=== PATIENT | female | born 1990 | race Caucasian/White ===

== ENCOUNTER 2024-05-16 10:13 | Emergency (ER) | payer OTHER, SELFPAY ==
[2024-05-16 10:19] VITALS: BP 140/94; PULSE 88; RESP 24; TEMP 36.4; O2SAT 99; BMI 58.2
[2024-05-16 11:28] LABS: Adenovirus Not Detected (Not Detect); B. parapertussis Not Detected (Not Detecte); Bordetella pertussis Not Detected (Not Detect); Chlamydophila pneumoniae Not Detected (Not Detect); Coronavirus 229E Not Detected (Not Detect); Coronavirus HKU1 Not Detected (Not Detect); Coronavirus NL 63 Not Detected (Not Detect); Coronavirus OC43 Not Detected (Not Detect); Human Metapneumovirus Not Detected (Not Detect); Human Rhinovirus/Enterovirus Not Detected (Not Detect); Influenza A Not Detected (Not Detect); Influenza B Not Detected (Not Detect); Mycoplasma pneumoniae Not Detected (Not Detect); Parainfluenza Virus 1 Not Detected (Not Detect); Parainfluenza Virus 2 Not Detected (Not Detect); Parainfluenza Virus 3 Not Detected (Not Detect); Parainfluenza Virus 4 Not Detected (Not Detect); Respiratory Syncytial Virus Not Detected (Not Detect); SARS- CoV-2 Not Detected (Not Detecte)
--- NOTE | 2024-05-16 13:35 | ED.URI ---
HPI - URI/Sore Throat <Maritza Arizmendi PA-C - Last Filed: 05/16/24 19:31> General Chief Complaint: Upper Respiratory Symptoms Stated Complaint: Mold Exposure Time Seen by Provider: 05/16/24 13:34 Source: patient Mode of arrival: Family Vehicle History of Present Illness HPI Narrative: Ms. Aparicio is a pleasant 34-year-old female with a past medical history of bipolar disorder who presents to the emergency department for concerns of mold exposure. Patient reports she lives in an apartment complex and is being exposed to mold. States that she is attempting to move. In the last few days, she has had cough and sinus congestion that she is worried is related to the mold. Denies fevers, chills, nausea, vomiting, difficulty breathing, rash. She does take a daily allergy pill as recommended by her PCP. Related Data Allergies Allergy/AdvReac Type Severity Reaction Status Date / Time No Known Drug Allergies Allergy Verified 05/16/24 10:28 Review of Systems <Maritza Arizmendi PA-C - Last Filed: 05/16/24 19:31> Review of Systems ROS Unobtainable: All systems reviewed & are unremarkable except as noted in HPI and below Patient History <Maritza Arizmendi PA-C - Last Filed: 05/16/24 19:31> Social History Smoking Status: Former smoker Smoking Status: Former smoker tobacco type: cigarettes alcohol intake frequency: 0-2 drinks per day Substance Use Type: marijuana Exam <Maritza Arizmendi PA-C - Last Filed: 05/16/24 19:31> Narrative Exam Narrative: GENERAL: 34 year old patient appears stated age. Obese patient, in no acute distress. HEAD: Atraumatic. Normocephalic. EYES: Extraocular motions intact. No scleral icterus. No injection or drainage. ENT: Nose without bleeding, purulent drainage. Airway patent. NECK: Trachea midline. CARDIOVASCULAR: Regular rate and rhythm. RESPIRATORY: Clear to auscultation. Breath sounds equal bilaterally. No wheezes, rales, or rhonchi. EXTREMITIES: No edema or joint tenderness. BACK: Nontender without deformity or crepitance NEURO: AOx3. SKIN: No rash or erythema of visible areas Initial Vital Signs Initial Vital Signs: Vital Signs Temperature 97.6 F 05/16/24 10:19 Pulse Rate 88 05/16/24 10:19 Respiratory Rate 24 05/16/24 10:19 Blood Pressure 140/94 H 05/16/24 10:19 Pulse Oximetry 99 05/16/24 10:19 Oxygen Delivery Method Room Air 05/16/24 10:19 <Bhavani Mcmillan MD - Last Filed: 05/21/24 07:11> Initial Vital Signs Initial Vital Signs: Vital Signs Temperature 97.6 F 05/16/24 10:19 Pulse Rate 88 05/16/24 10:19 Respiratory Rate 24 05/16/24 10:19 Blood Pressure 140/94 H 05/16/24 10:19 Pulse Oximetry 99 05/16/24 10:19 Oxygen Delivery Method Room Air 05/16/24 10:19 Course <Maritza Arizmendi PA-C - Last Filed: 05/16/24 19:31> Orders Ordered: Discontinued Medications Hydroxyzine HCl (Hydroxyzine Hcl 25 Mg Tablet) 25 mg PO NOW ONE Stop: 05/16/24 17:32 Last Admin: 05/16/24 17:47 Dose: 25 mg Documented By: SHERIF Vital Signs Vital signs: Vital Signs - 8 hr 05/16/24 16:34 05/16/24 18:35 Pulse Rate 84 78 Respiratory Rate 18 18 Blood Pressure 134/74 155/92 H Pulse Oximetry 97 98 Oxygen Delivery Method Room Air Room Air <Bhavani Mcmillan MD - Last Filed: 05/21/24 07:11> Orders Ordered: Discontinued Medications Hydroxyzine HCl (Hydroxyzine Hcl 25 Mg Tablet) 25 mg PO NOW ONE Stop: 05/16/24 17:32 Last Admin: 05/16/24 17:47 Dose: 25 mg Documented By: SHERIF Vital Signs Vital signs: Vital Signs - 8 hr 05/16/24 16:34 05/16/24 18:35 Pulse Rate 84 78 Respiratory Rate 18 18 Blood Pressure 134/74 155/92 H Pulse Oximetry 97 98 Oxygen Delivery Method Room Air Room Air MDM - URI/Sore Throat <Maritza Arizmendi PA-C - Last Filed: 05/16/24 19:31> Lab Data Labs: Lab Results 05/16/24 Range/Units 10:30 Chlamy pneumoniae PCR Not detected (Not Detect) Adenovirus (PCR) Not detected (Not Detect) B. pertussis DNA (PCR) Not detected (Not Detect) B.parapertussis DNA PCR Not detected (Not Detecte) Coronavirus OC43 (PCR) Not detected (Not Detect) Coronavirus HKU1 (PCR) Not detected (Not Detect) Coronavirus 229E (PCR) Not detected (Not Detect) SARS-CoV-2 (PCR) Not detected (Not Detecte) Coronavirus NL63 (PCR) Not detected (Not Detect) Human Metapneumovir PCR Not detected (Not Detect) Influenza Type A (PCR) Not detected (Not Detect) Influenza Type B (PCR) Not detected (Not Detect) M. pneumoniae (PCR) Not detected (Not Detect) Parainfluenza 1 (PCR) Not detected (Not Detect) Parainfluenza 2 (PCR) Not detected (Not Detect) Parainfluenza 3 (PCR) Not detected (Not Detect) Parainfluenza 4 (PCR) Not detected (Not Detect) RSV (PCR) Not detected (Not Detect) Entero/Rhino (PCR) Not detected (Not Detect) Point of Care Testing Test Results Negative Imaging Data Chest x-ray: My Impression: On my independent interpretation of the chest x-ray, there is no large pleural effusion or pneumothorax. Radiologist's Impression: FINDINGS: Surgical changes and devices: None. Lungs and pleura: Lungs are clear. No pleural effusions or pneumothorax. Mediastinum: Mediastinal contours are normal. Heart size is normal. Bones and chest wall: No suspicious bony abnormalities. Soft tissues appear unremarkable. IMPRESSION: No acute cardiopulmonary abnormality is seen. MDM Narrative Medical decision making narrative: 34-year-old female presents to the emergency department for mold exposure/URI sx. Differential diagnosis includes but not limited to viral URI, bronchitis, pneumonia, fungal pneumonia, etc. On exam she has in no acute distress, nontoxic appearing, not tachycardic and she is afebrile. 99% on room air. Lungs CTA BL. Viral swab negative. We will proceed with chest x-ray to rule out infiltrate -- chest XR negative. Recommended continuation of daily allergy pill and removing herself from mold exposed area. She is living with a friend at this time. Discussed signs and symptoms to return to the ED for. Advised patient follow up with her PCP for repeat evaluation within the next week return to the ER for any new or worsening symptoms. Patient is agreeable with the plan and stable for discharge. <Bhavani Mcmillan MD - Last Filed: 05/21/24 07:11> Lab Data Labs: Lab Results 05/16/24 Range/Units 10:30 Chlamy pneumoniae PCR Not detected (Not Detect) Adenovirus (PCR) Not detected (Not Detect) B. pertussis DNA (PCR) Not detected (Not Detect) B.parapertussis DNA PCR Not detected (Not Detecte) Coronavirus OC43 (PCR) Not detected (Not Detect) Coronavirus HKU1 (PCR) Not detected (Not Detect) Coronavirus 229E (PCR) Not detected (Not Detect) SARS-CoV-2 (PCR) Not detected (Not Detecte) Coronavirus NL63 (PCR) Not detected (Not Detect) Human Metapneumovir PCR Not detected (Not Detect) Influenza Type A (PCR) Not detected (Not Detect) Influenza Type B (PCR) Not detected (Not Detect) M. pneumoniae (PCR) Not detected (Not Detect) Parainfluenza 1 (PCR) Not detected (Not Detect) Parainfluenza 2 (PCR) Not detected (Not Detect) Parainfluenza 3 (PCR) Not detected (Not Detect) Parainfluenza 4 (PCR) Not detected (Not Detect) RSV (PCR) Not detected (Not Detect) Entero/Rhino (PCR) Not detected (Not Detect) Point of Care Testing Test Results Negative Discharge Plan Departure Patient Disposition: Home Clinical Impression: Exposure to mold Cough Qualifiers: Cough type: acute Qualified Code(s): R05.1 - Acute cough Activity Restrictions/Additional Instructions: Please rest, hydrate, and take a daily allergy pill. Avoid any additional mold exposures if possible. Return to the ER with any new or worsneing symptoms and follow up with your primary doctor within the next week. Referrals: Krista Diehl FNP-BC [Primary Care Provider] - Stand Alone Forms: Patient Portal/API/Survey ED Sign-out <Bhavani Mcmillan MD - Last Filed: 05/21/24 07:11> Cosign ED Attending Herminioature Attestation: I was immediately available in the department for consultation throughout this patient's visit. Bhavani Mcmillan MD
--- NOTE | 2024-05-16 15:37 | DI.RAD.S_ITS ---
PROCEDURE: XR CHEST 2V INDICATIONS: cough ; mold exposure TECHNIQUE: 2 views of the chest were acquired. COMPARISON: None. FINDINGS: Surgical changes and devices: None. Lungs and pleura: Lungs are clear. No pleural effusions or pneumothorax. Mediastinum: Mediastinal contours are normal. Heart size is normal. Bones and chest wall: No suspicious bony abnormalities. Soft tissues appear unremarkable. IMPRESSION: No acute cardiopulmonary abnormality is seen. Dictated by: Jerry Mendez M.D. on 05/16/2024 at 16:15 Approved by: Jerry Mendez M.D. on 05/16/2024 at 16:15
[2024-05-16 16:34] VITALS: BP 134/74; PULSE 84; RESP 18; O2SAT 97
[2024-05-16] MEDS: hydrOXYzine HCL 25 MG TABLET PO (17:47)
[2024-05-16 18:35] VITALS: BP 155/92; PULSE 78; RESP 18; O2SAT 98
== END 2024-05-16 18:08 | disposition home or self-care (01) ==
PROVIDERS: Emergency Medicine; Emergency Provider Physician Assistant; PCP Nurse Practitioner Family
DX: Z77.120 Contact with and (suspected) exposure to mold (toxic) (principal); R05.1 Acute cough; Z11.52 Encounter for screening for COVID-19
CPT/HCPCS: 71046; 81025; 87633; 99283; A9270